=== PATIENT | male | born 1970 | race Hispanic/Latino ===

== ENCOUNTER 2018-08-21 08:43 | Emergency (ER) | payer OTHER ==
[2018-08-21] MEDS ORDERED: NA CHLORIDE 0.9% 1,000 ML ONE (09:39)
[2018-08-21 09:46] LABS: Absolute Lymphocytes (CBC) 1.8 K/uL (0.7-4.9); Absolute Monocytes 0.6 K/uL (0.1-1.3); Absolute Neutrophil 4.7 K/uL (1.8-8.0); Basophils % 0.7 % (0-1.3); Eosinophils % 3.2 % (0-4.4); Hematocrit 44.9 % (39.6-49.0); Lymphocytes % 23.8 % (15.3-44.8); MPV 9.1 fL (7.6-11.3); Monocytes % 8.3 % (3.3-12.3); RBC Red Blood Cell Count 4.75 M/uL (4.33-5.43)
[2018-08-21 10:05] LABS: BUN Blood Urea Nitrogen 13 mg/dL (7-18); Bicarbonate 28 mmol/L (21-32); Glucose Level 330 mg/dL (74-106); Sodium Level 137 mmol/L (136-145)
--- NOTE | 2018-08-21 10:48 | ER ---
Nurse's Notes [facility] Name: Angelito Ring Age: 48 yrs Sex: Male : 1970 Arrival Date: 08/21/2018 Time: 08:45 Bed 18 Private MD: Diagnosis: Essential (primary) hypertension;Hyperglycemia, unspecified Presentation: 08/21 08:46 Presenting complaint: EMS states: HIGH BLOOD PRESSURE. Transition of care: patient was bp not received from another setting of care. Onset of symptoms is unknown. Risk Assessment: Do you want to hurt yourself or someone else? Patient reports no desire to harm self or others. Initial Sepsis Screen: Does the patient meet any 2 criteria? No. Patient's initial sepsis screen is negative. Does the patient have a suspected source of infection? No. Patient's initial sepsis screen is negative. Care prior to arrival: Glucose check: 439. 08:46 Method Of Arrival: EMS: [facility] bp 08:46 Acuity: PRAVEEN 3 bp Triage Assessment: 08:48 General: Appears in no apparent distress. comfortable, Behavior is calm, cooperative, bp appropriate for age. Pain: Denies pain. EENT: No deficits noted. Neuro: Level of Consciousness is awake, alert, obeys commands, Oriented to person, place, time, situation, Appropriate for age. Cardiovascular: No deficits noted. Respiratory: Airway is patent Respiratory effort is even, unlabored, Respiratory pattern is regular, symmetrical. GI: No signs and/or symptoms were reported involving the gastrointestinal system. : No signs and/or symptoms were reported regarding the genitourinary system. Derm: No deficits noted. Musculoskeletal: Circulation, motion, and sensation intact. Range of motion: intact in all extremities. Historical: - Allergies: 08:48 PENICILLINS; bp - Home Meds: 08:48 Metformin Oral [Active]; losartan oral oral [Active]; bp - PMHx: 08:48 Hypertension; Diabetes - NIDDM; bp - Immunization history:: Adult Immunizations up to date. - Social history:: Smoking status: Patient/guardian denies using tobacco. - Ebola Screening: : Patient negative for fever greater than or equal to 101.5 degrees Fahrenheit, and additional compatible Ebola Virus Disease symptoms Patient denies exposure to infectious person Patient denies travel to an Ebola-affected area in the 21 days before illness onset No symptoms or risks identified at this time. Screenin:50 Abuse screen: Denies threats or abuse. Denies injuries from another. Nutritional bp screening: No deficits noted. Tuberculosis screening: No symptoms or risk factors identified. Fall Risk None identified. Assessment: 08:50 General: SEE TRIAGE NOTE. bp 10:00 Reassessment: ALL CURRENT ORDERS COMPLETED, NORMO-TENSIVE ON MONITOR. RESULTS PENDING. bp 11:07 Reassessment: PT D/C HOME AMBULATORY, DX WITH HYPERTENSION AND HYPERGLYCEMIA. bp Vital Signs: 08:49 BP 214 / 110; Pulse 80; Resp 16; Temp 98; Pulse Ox 99% ; Weight 122.47 kg; Height 5 ft. bp 7 in. (170.18 cm); 08:54 BP 169 / 99; Pulse 70; Resp 16; Pulse Ox 100% ; bp 09:29 BP 139 / 77; Pulse 61; Resp 14; Pulse Ox 99% ; bp 10:33 BP 148 / 76; Pulse 56; Resp 14; Pulse Ox 98% ; bp 11:08 BP 149 / 92; Pulse 56; Resp 16; Temp 98; Pulse Ox 98% ; bp 08:49 Body Mass Index 42.29 (122.47 kg, 170.18 cm) bp 08:49 EMS VITALS bp ED Course: 08:45 Patient arrived in ED. bp 08:45 Joe Quinones MD is Attending Physician. gs 08:47 Triage completed. bp 08:49 Arm band placed on. bp 08:50 Patient has correct armband on for positive identification. Bed in low position. Call bp light in reach. Side rails up X2. 08:52 EKG done, by coroner forensic technician. reviewed by Joe Quinones MD. at1 09:28 Cristi Echevarria, RN is Primary Nurse. bp 09:29 Inserted saline lock: 20 gauge in right forearm, using aseptic technique. Blood bp collected. 10:47 Sav Jimenez DO is Referral Physician. gs 11:09 No provider procedures requiring assistance completed. IV discontinued, intact, bp bleeding controlled, No redness/swelling at site. Pressure dressing applied. Administered Medications: 09:28 Drug: NS 0.9% 1000 ml Route: IV; Rate: 1 bolus; Site: right forearm; bp 11:07 Follow up: IV Status: Completed infusion; IV Intake: 1000ml bp Intake: 11:07 IV: 1000ml; Total: 1000ml. bp Outcome: 10:47 Discharge ordered by . king 11:09 Discharged to home ambulatory. bp 11:09 Condition: stable 11:09 Discharge instructions given to patient, Instructed on discharge instructions, follow up and referral plans. Demonstrated understanding of instructions, follow-up care. 11:13 Patient left the ED. bp Signatures: Martha Alegria, band tacker EKG Tat1 Joe Quinones MD MD gs Peltier, Brian, RN RN bp Corrections: (The following items were deleted from the chart) 08:54 08:49 BP 214 / 110; Pulse 80bpm; Resp 16bpm; Pulse Ox 99%; Temp 98F; bp bp 08:55 08:49 BP 214 / 110; Pulse 80bpm; Resp 16bpm; Pulse Ox 99%; Temp 98F; 122.47 kg; Height bp 5 ft. 7 in.; BMI: 42.2; bp
--- NOTE | 2018-08-21 10:48 | EDPHYS ---
Physician Documentation [facility] Name: Angelito Ring Age: 48 yrs Sex: Male : 1970 Arrival Date: 08/21/2018 Time: 08:45 Bed 18 Private MD: ED Physician Joe Quinones HPI: 08/21 10:43 This 48 yrs old Male presents to ER via EMS with complaints of Blood Pressure gs Problem. 10:43 The patient has elevated blood pressure and discovered this during work physical. gs Onset: The symptoms/episode began/occurred today. Modifying factors: The symptoms are aggravated by activity. Associated signs and symptoms: Pertinent negatives: chest pain, dizziness, dyspnea, visual changes, vomiting, weakness. Severity of symptoms: At its worst the blood pressure was severe, in the emergency department the blood pressure is improved, markedly. The patient has experienced similar episodes in the past, a few times. The patient has been recently seen by a physician: injury at work chest contusion seen and evaluated. Historical: - Allergies: 08:48 PENICILLINS; bp - Home Meds: 08:48 Metformin Oral [Active]; losartan oral oral [Active]; bp - PMHx: 08:48 Hypertension; Diabetes - NIDDM; bp - Immunization history:: Adult Immunizations up to date. - Social history:: Smoking status: Patient/guardian denies using tobacco. - Ebola Screening: : Patient negative for fever greater than or equal to 101.5 degrees Fahrenheit, and additional compatible Ebola Virus Disease symptoms Patient denies exposure to infectious person Patient denies travel to an Ebola-affected area in the 21 days before illness onset No symptoms or risks identified at this time. ROS: 10:43 All other systems are negative. gs Exam: 10:43 Head/Face: Normocephalic, atraumatic. Eyes: Pupils equal round and reactive to light, gs extra-ocular motions intact. Lids and lashes normal. Conjunctiva and sclera are non-icteric and not injected. Cornea within normal limits. Periorbital areas with no swelling, redness, or edema. ENT: Nares patent. No nasal discharge, no septal abnormalities noted. Tympanic membranes are normal and external auditory canals are clear. Oropharynx with no redness, swelling, or masses, exudates, or evidence of obstruction, uvula midline. Mucous membranes moist. Neck: Trachea midline, no thyromegaly or masses palpated, and no cervical lymphadenopathy. Supple, full range of motion without nuchal rigidity, or vertebral point tenderness. No Meningismus. Chest/axilla: Normal chest wall appearance and motion. Nontender with no deformity. No lesions are appreciated. Cardiovascular: Regular rate and rhythm with a normal S1 and S2. No gallops, murmurs, or rubs. Normal PMI, no JVD. No pulse deficits. Respiratory: Lungs have equal breath sounds bilaterally, clear to auscultation and percussion. No rales, rhonchi or wheezes noted. No increased work of breathing, no retractions or nasal flaring. Abdomen/GI: Soft, non-tender, with normal bowel sounds. No distension or tympany. No guarding or rebound. No evidence of tenderness throughout. Back: No spinal tenderness. No costovertebral tenderness. Full range of motion. Skin: Warm, dry with normal turgor. Normal color with no rashes, no lesions, and no evidence of cellulitis. MS/ Extremity: Pulses equal, no cyanosis. Neurovascular intact. Full, normal range of motion. Neuro: Awake and alert, GCS 15, oriented to person, place, time, and situation. Cranial nerves II-XII grossly intact. Motor strength 5/5 in all extremities. Sensory grossly intact. Cerebellar exam normal. Normal gait. 10:43 Constitutional: The patient appears alert, awake. 10:43 ECG was reviewed by the Attending Physician. Vital Signs: 08:49 BP 214 / 110; Pulse 80; Resp 16; Temp 98; Pulse Ox 99% ; Weight 122.47 kg; Height 5 ft. bp 7 in. (170.18 cm); 08:54 BP 169 / 99; Pulse 70; Resp 16; Pulse Ox 100% ; bp 09:29 BP 139 / 77; Pulse 61; Resp 14; Pulse Ox 99% ; bp 10:33 BP 148 / 76; Pulse 56; Resp 14; Pulse Ox 98% ; bp 11:08 BP 149 / 92; Pulse 56; Resp 16; Temp 98; Pulse Ox 98% ; bp 08:49 Body Mass Index 42.29 (122.47 kg, 170.18 cm) bp 08:49 EMS VITALS bp MDM: 09:22 Patient medically screened. gs 10:43 Data reviewed: vital signs, nurses notes, lab test result(s), EKG. Counseling: I had a detailed discussion with the patient and/or guardian regarding: the historical points, exam findings, and any diagnostic results supporting the discharge/admit diagnosis, the presence of at least one elevated blood pressure reading (>120/80) during this emergency department visit, lab results, the need for outpatient follow up. Response to treatment: the patient's symptoms have markedly improved after treatment. 08/21 08: Order name: CBC with Diff; Complete Time: 10: 08/21 Order name: Basic Metabolic Panel; Complete Time: 10: 08/21 08: Order name: EKG; Complete Time: 08/21 Order name: EKG - Nurse/Tech; Complete Time: EC:43 Rate is 64 beats/min. Rhythm is regular. WV interval is normal. QRS interval is normal. gs No Q waves. T waves are Normal. No ST changes noted. Clinical impression: Normal ECG. Interpreted by me. Administered Medications: Drug: NS 0.9% 1000 ml Route: IV; Rate: 1 bolus; Site: right forearm; bp 11:07 Follow up: IV Status: Completed infusion; IV Intake: 1000ml bp Disposition: 08/21/18 10:47 Discharged to Home. Impression: Essential (primary) hypertension, Hyperglycemia, unspecified. - Condition is Stable. - Discharge Instructions: Hyperglycemia, Hypertension. - Medication Reconciliation Form, Thank You Letter, Antibiotic Education, Prescription Opioid Use, Work release form form. - Follow up: Sav Jimenez DO; When: 2 - 3 days; Reason: Re-evaluation by your physician. Signatures: Dispatcher [employer] [facility] Joe Quinones MD MD gs Peltier, Brian RN RN bp Corrections: (The following items were deleted from the chart) 11:13 10:47 08/21/2018 10:47 Discharged to Home. Impression: Essential (primary) bp hypertension; Hyperglycemia, unspecified. Condition is Stable. Forms are Medication Reconciliation Form, Thank You Letter, Antibiotic Education, Prescription Opioid Use. Follow up: Sav Jimenez; When: 2 - 3 days; Reason: Re-evaluation by your physician.
--- NOTE | 2018-08-21 12:45 | EKG ---
Test Date: 2018-08-21 Test Time: 08:48:02 Manager Clinical Informatics: JORGE MEASUREMENT RESULTS: Intervals: Rate: 64 CA: 138 QRSD: 80 QT: 390 QTc: 402 [place]: P: 6 CA: 138 QRS: 49 T: 58 INTERPRETIVE STATEMENTS: Normal sinus rhythm Normal ECG No previous ECG available for comparison Electronically Signed On 08-21-18 12:44:02 CDT by Ronald Florian
== END 2018-08-21 11:13 | disposition home or self-care (01) ==
LOC: ER 08:43
DX: I10 Essential (primary) hypertension (principal); E11.65 Type 2 diabetes mellitus with hyperglycemia
CPT/HCPCS: 36415; 80048; 85025; 93005; 96360; 96361; 99284; J7030